=== PATIENT | male | born 1960 | race Caucasian/White ===

== ENCOUNTER → 2016-10-12 08:53 | Outpatient (CLI) | payer MEDICAID ==
[2015-04-12 08:39] VITALS: BMI 35.3
[~2016-10-12 08:53] MED LIST: ASPIRIN325 MG PO
== END | disposition home or self-care (01) ==
LOC: D.RAD 08:30
DX: M48.07 Spinal stenosis, lumbosacral region (principal)

== ENCOUNTER 2018-09-12 08:45 | Day surgery (SDC) | payer MEDICAID ==
[~2018-09-12] VITALS: Ht 175.3 cm; Wt 108.4 kg
[~2018-09-12 08:45] MED LIST changes: +ATORVASTATIN TAB 10M PO; +JALYN 0.5-0.41 EACH PO; +LISINOPRIL-HCT1 EAC8 PO
[2018-09-12 09:13] LABS: HEMATOCRIT 45.9 % (42.0-54.0); HEMOGLOBIN 15.8 g/dL (13.5-17.5); MCH 30.4 pg (26.0-34.0); MCHC 34.4 g/dL (31.0-37.0); MCV 88.4 fL (80.0-100.0); MEAN PLATELET VOLUME 9.5 fL (7.4-10.4); RBC 5.19 10x6/uL (4.20-6.10); RDW 13.6 % (11.5-14.5); WBC 6.3 10x3/uL (4.8-10.8)
[2018-09-12 09:58] VITALS: BP 180/92; Ht 175.3 cm; Wt 108.4 kg
[2018-09-12 21:30] VITALS: BP 136/86
--- NOTE | 2018-09-12 21:30 | NUR ---
RECIEVED TO ROOM FROM [facility] EASILY, DENIES PAIN, BANDAID DRESSING CLEAN DRY AND INTACT TO UMBILICUS,IV FLUID INFUSING WITHOUT DIFFICULTY, AT BEDSIDE, VITAL SIGNS STABLE, CALL LIGHT IN REACH
[2018-09-12 22:00] VITALS: BP 141/82
--- NOTE | 2018-09-12 22:30 | NUR ---
VOIDED 200CC CLEAR [place] URINE, TOLERATING WATER WITHOUT NAUSEA, ALERT AND ORIENTIATED REQUESTING PUDDING TO EAT GIVEN
[2018-09-12 23:10] VITALS: BP 143/86
--- NOTE | 2018-09-12 23:10 | NUR ---
TOLERATED PUDDING STATES READY TO GO HOME, ALERT AND ORIENTIATED VITALS STABLE REPORTS MILD RECTAL PAIN OF 5, AND ABD PAIN OF 3, PERSCRIPTIONS FOR VALIUM AND COLACE GIVEN TO , INSTRUCTED TO CALL DR PEREZ OFFICE ON SATURDAY FOR FOLLOW UP APPOINTMENT, DISCHARGE INSTRUCTIONS GIVEN IV DC'D, DISCHARGED HOME WITH
--- NOTE | 2018-09-16 10:32 | OP ---
PATIENT NAME: SMILEY MESSER MEDICAL RECORD: [id number] :64 LOCATION:[facility] ADMISSION DATE: SURGEON: JEISON PEREZ MD DATE OF OPERATION: 09/12/2018 PREOPERATIVE DIAGNOSES: 1. Intractably bleeding internal hemorrhoids. 2. Symptomatic ventral hernia. POSTOPERATIVE DIAGNOSES: 1. Symptomatic incarcerated ventral hernia. 2. Internal hemorrhoidal bundles times 6. SURGEON: Jeison Perez MD RECAPPER: None. BLOOD LOSS: Less than 50 cc. ANESTHESIA: General. COMPLICATIONS: None. The risks, possible complications, and alternatives to the procedure were explained to the patient. He elects to proceed. The discussion specifically included, but was not limited to, bleeding requiring emergency reoperation, infection, bowel injury, hernia recurrence, as well as recurrent hemorrhoidal problems. We specifically discussed the fact that mesh would be used during the hernia repair. OPERATIVE COURSE: The patient was conveyed to the operating room electively on 09/12/2018. General anesthesia was induced by anesthesia staff. The abdomen, genitals, and buttocks were sterilely prepped and draped as was the anus. A curvilinear incision was accomplished above the umbilicus. Sharp dissection was carried out through skin and subcutaneous tissue to the hernia sac. I freed up the hernia sac from the surrounding fascia. I cleaned the surrounding fascia with electrocautery. I entered the hernia sac. There was incarcerated preperitoneal fat present within the hernia sac. The incarcerated contents were removed. A portion of the hernia sac was excised. I placed a small Proceed mesh into the abdominal cavity. The 2 tails of Proceed mesh were then pulled up and flattening out the mesh against the inferior abdominal wall deep to the fascia. The mesh was trimmed. It was sutured at 4 different areas on to the fascia with interrupted 2-0 Ethibond sutures. The subcutaneous adipose tissue was closed over this repair. The skin was then closed with a running intracuticular 3-0 Vicryl. The lower extremities were then elevated. The patient was placed in the lithotomy position. U-shaped anal retractors were placed. I noted no evidence of anal fistula. No evidence of anal fissure. There were 6 internal hemorrhoidal bundles which I ligated with [id number] 3-0 Vicryl suture. OPERATIVE REPORT [id number] SMILEY MESSER There was no further bleeding. Gelfoam was applied to the anus and lower rectum. A combination of Marcaine and steroid preparation were used to infiltrate the subcutaneous tissue around the anus. A topical anesthetic cream was applied to the external hemorrhoids. The patient was then extubated and conveyed to post-anesthesia care unit where he was in stable condition. Evidently, he IS ALLERGIC TO ALL NARCOTICS AND IS ALSO ALLERGIC TO TRAMADOL. I spoke with the patient's . He is going to plan on taking ibuprofen. I have written him a prescription for Valium as well as Colace. He is going to go to a wakeup bed and later this evening he can be dismissed home as he is feeling good. TRANSINT:[id number] Voice Confirmation ID: [id number] DOCUMENT ID: [id number] JEISON PEREZ MD at 1032 CC: [id number] DICTATION DATE: 09/12/182103 MASTER SONAR TECHNICIAN: 09/12/[address] [facility] 09/12/18 [place] [id number] [place] [address]
== END 2018-09-12 23:20 | disposition home or self-care (01) ==
LOC: D.OPS 08:45 → D.MS 21:15 → D.OPS 23:20
PROVIDERS: Anesthesiology; ATTEND Surgery
DX: K64.8 Other hemorrhoids (principal); K43.9 Ventral hernia without obstruction or gangrene; E78.5 Hyperlipidemia, unspecified; I10 Essential (primary) hypertension; E66.9 Obesity, unspecified

== ENCOUNTER → 2018-10-29 14:50 | Outpatient (CLI) | payer MEDICAID ==
[2018-09-12 09:58] VITALS: BMI 35.3
== END | disposition home or self-care (01) ==
LOC: D.LAB 14:50
PROVIDERS: ATTEND Urology
DX: N40.0 Benign prostatic hyperplasia without lower urinary tract symptoms (principal)

== ENCOUNTER 2018-11-20 06:30 | Day surgery (SDC) | payer MEDICAID ==
[2018-11-19 16:54] LABS: HEMATOCRIT 46.4 % (42.0-54.0); HEMOGLOBIN 16.4 g/dL (13.5-17.5); MCH 30.4 pg (26.0-34.0); MCHC 35.3 g/dL (31.0-37.0); MCV 86.1 fL (80.0-100.0); MEAN PLATELET VOLUME 10.2 fL (7.4-10.4); RBC 5.39 10x6/uL (4.20-6.10); RDW 13.5 % (11.5-14.5); WBC 10.5 10x3/uL (4.8-10.8)
[2018-11-19 17:13] LABS: CALC OSMOLALITY 275 mosm/kg (275-300); CALCIUM 9.2 mg/dL (8.5-10.1); CHLORIDE - SERUM 101 mmol/L (98-107); CREATININE - SERUM 0.9 mg/dL (0.6-1.3); GLUCOSE 108 mg/dL (74-106); SODIUM 136 mmol/L (136-145); UREA NITROGEN 22 mg/dL (7-18); eGFR NON AFRICAN AMERICAN > 90 mL/min (90-120)
[~2018-11-20] VITALS: Ht 175.3 cm; Wt 105.2 kg
[2018-11-20] MEDS ORDERED: TERAZOSIN HCL2 MG PO (07:14)
[2018-11-20 07:15] VITALS: BP 150/96; Ht 175.3 cm; Wt 105.2 kg
--- NOTE | 2018-11-20 07:43 | NUR ---
DR. BONNER NOTIFIED AND REVIEWED PT'S BEHAVIOR AND ASSESSMENT RESULTS. PT IS A LOW RISK PER DR. BONNER ORDER. DR. BONNER STATED TO GIVE RESOURCES TO PT AT TIME OF DISCHARGE. NO FURTHER ORDERS AT THIS TIME. RESOURCES REVIEWED WITH PT AND HE VERBALIZIED UNDERSTANDING.
--- NOTE | 2018-11-20 12:17 | OP ---
PATIENT NAME: SMILEY MESSER MEDICAL RECORD: [id number] :64 LOCATION:[facility] ADMISSION DATE: SURGEON: FABRICIO BLOOM MD DATE OF OPERATION: 11/20/2018 SURGEON: Fabricio Bloom MD ANESTHESIA: TIVA by Dora Bassett CRNA DIAGNOSIS: Obstructive benign prostatic hyperplasia. IPSS is 19, quality of life score is 5, on dutasteride plus tamsulosin plus terazosin. AUBREY 30 gram prostate. FINDINGS: Bilateral lateral lobe hyperplasia with some elevation of the bladder neck. Single ureteral orifices bilaterally with no bladder tumors, trabeculated bladder. ESTIMATED BLOOD LOSS: Minimal. CLINICAL HISTORY: This is a 58-year-old male, who has obstructive BPH symptoms. He has been on dutasteride, tamsulosin and terazosin for several years. Dr. Allison with his urologist in the past and it was Dr. Allison that came up with this combination of medications. He has quite a lot of side effects from the medications including dizziness upon arising, retrograde ejaculation and poor memory. Dr. Allison also performed a prostate biopsy last year and the pathology result was benign. His IPSS score is 19, quality of life score is 5 on all these medications. PVR is 0 mL. PSA on December 2015 was 2.58. AUBREY shows a 30 gram prostate. He is tired of being on these medications and comes to have the UroLift procedure done. HE IS ALLERGIC TO CODEINE, OXYCODONE AND TRAMADOL. We gave him Ancef merchandising consultant to the OR. DESCRIPTION OF PROCEDURE: The patient was given IV sedation. He was then placed into lithotomy position and prepped and draped. The UroLift scope was introduced. Findings are as outlined above. A 1.5 cm distal to the bladder neck, we placed 2 units in the anterolateral sulcus, one on each side. At the level of the verumontanum, another 2 units were placed, one on each side. This was again at the anterolateral sulcus. This resulted in a nice open anterior urethral channel. Going back into the bladder using the obturator, there was a nice open urethral passage. The prostate was very vascular and placement of the UroLift implants created some gross hematuria. I therefore placed a 16-[place]awk Srivastava catheter into the bladder. The balloon was inflated with 10 cc of sterile water. The patient will go home with a Srivastava catheter. I will see him next week to remove the Srivastava catheter once the hematuria has cleared up. TRANSINT:[id number] Voice Confirmation ID: [id number] DOCUMENT ID: [id number] OPERATIVE REPORT [id number] SMILEY MESSER, FABRICIO Briscoe MD at 1217 CC: [id number] DICTATION DATE: 11/20/18 0936 GENERAL INTERNIST AND PHYSICIAN LEADER: 11/20/18 [address] [place] [address] [id number] [place] [id number]
--- NOTE | 2018-11-20 15:59 | NUR ---
1107 ALL DC CRITERIA MET. REFUSED WC DUE TO CATHETER IRRITATION. AMBULATED DOWN TO CAR WITH . ADVISED TO CALL OR COME BACK IF ANY PROBLEMS.
--- NOTE | 2018-11-20 16:01 | NUR ---
FOUND SCRIPT AFTER PT DC'D. CALLED IN TO PHARMACY AND NOTIFIED PT.
== END 2018-11-20 11:07 | disposition home or self-care (01) ==
LOC: D.OPS 06:30
PROVIDERS: Anesthesiology; ATTEND Urology
DX: N40.1 Benign prostatic hyperplasia with lower urinary tract symptoms (principal); N13.8 Other obstructive and reflux uropathy

== ENCOUNTER → 2019-01-22 10:21 | Outpatient (CLI) | payer MEDICAID ==
[2018-11-20 07:15] VITALS: BMI 34.3
[~2019-01-22 10:21] MED LIST changes: +TERAZOSIN HCL2 MG PO
== END | disposition home or self-care (01) ==
LOC: D.MRI 10:21
PROVIDERS: ATTEND Orthopaedic Surgery
DX: M25.569 Pain in unspecified knee (principal)

== ENCOUNTER → 2019-03-09 17:26 | Outpatient (CLI) | payer MEDICAID ==
[2018-11-20 07:15] VITALS: BMI 34.3
== END | disposition home or self-care (01) ==
LOC: D.LABREF 17:26
PROVIDERS: ATTEND Orthopaedic Surgery
DX: M17.11 Unilateral primary osteoarthritis, right knee (principal)

== ENCOUNTER → 2019-08-27 11:31 | Outpatient (CLI) | payer MEDICAID ==
[2019-05-26 15:18] VITALS: BMI 36.1
[~2019-08-27 11:31] MED LIST changes: +BAYER CHEWABLE81 MG PO; +DILAUDID4 MG PO; +ELIQUIS2.5 MG PO; +FLOMAX0.4 MG PO; +KEFLEX500 MG PO; +NORVASC10 MG PO
== END | disposition home or self-care (01) ==
LOC: D.US 11:00
PROVIDERS: ATTEND Orthopaedic Surgery
DX: R22.41 Localized swelling, mass and lump, right lower limb (principal)

== ENCOUNTER → 2019-09-15 15:26 | Outpatient (CLI) | payer MEDICAID ==
[2019-05-26 15:18] VITALS: BMI 36.1
[2019-09-15 15:48] LABS: BASOPHILS 0.2 % (0-2); EOSINOPHILS 2.4 % (0-7); HEMATOCRIT 48.2 % (42.0-54.0); HEMOGLOBIN 16.2 g/dL (13.5-17.5); IMMATURE GRANULOCYTES 0.3 % (0-5); MCH 30.1 pg (26.0-34.0); MCHC 33.6 g/dL (31.0-37.0); MCV 89.6 fL (80.0-100.0); MEAN PLATELET VOLUME 9.6 fL (7.4-10.4); MONOCYTES 8.3 % (2-11); NEUTROPHILS 59.8 % (40-80); RBC 5.38 10x6/uL (4.20-6.10); RDW 13.7 % (11.5-14.5); WBC 9.7 10x3/uL (4.8-10.8)
[2019-09-15 16:02] LABS: PLATELET COUNT 220 10x3/uL (130-400)
[2019-09-15 16:31] LABS: ALBUMIN 3.8 g/dL (3.4-5.0); ANION GAP 12.1 mmol/L (8-16); BILIRUBIN - TOTAL 0.35 mg/dL (0.2-1.3); CALCIUM 8.6 mg/dL (8.5-10.1); CARBON DIOXIDE 27.4 mmol/L (21.0-32.0); CREATININE - SERUM 1.2 mg/dL (0.6-1.3); POTASSIUM - SERUM 3.5 mmol/L (3.5-5.1); PROTEIN - SERUM 7.1 g/dL (6.4-8.2)
== END | disposition home or self-care (01) ==
LOC: D.LAB 15:26
PROVIDERS: ATTEND Internal Medicine Hematology & Oncology
DX: I82.401 Acute embolism and thrombosis of unspecified deep veins of right lower extremity (principal); N42.9 Disorder of prostate, unspecified